=== PATIENT | male | born 1945 | race Caucasian/White ===

== ENCOUNTER 2017-08-18 21:57 | Emergency (ER) | payer OTHER ==
[2017-08-18 22:04] VITALS: BMI 25.1
[2017-08-18] MEDS ORDERED: ASPIRIN PO ONE (22:08)
[2017-08-18] MEDS ORDERED: ASPIRIN ONE (22:10)
[2017-08-18 22:23] LABS: BASOPHILS % (AUTO) 0.6 % (0.2-1.0); EOSINOPHILS # (AUTO) 0.3 x10^3/uL (0.0-0.2); EOSINOPHILS % (AUTO) 4.7 % (0.9-2.9); HEMATOCRIT 41.1 % (42.0-54.0); HEMOGLOBIN 14.3 g/dL (13.5-18.0); LYMPHOCYTES # (AUTO) 2.9 X10^3/uL (1.3-2.9); LYMPHOCYTES % (AUTO) 39.4 % (21.0-51.0); MEAN CORPUSCULAR HEMOGLOBIN 29.4 pg (27.0-34.0); MEAN CORPUSCULAR HGB CONC 34.8 g/dL (33.0-35.0); MEAN CORPUSCULAR VOLUME 84.4 fL (80.0-100.0); MONOCYTES # (AUTO) 0.6 x10^3/uL (0.3-0.8); MONOCYTES % (AUTO) 8.7 % (0.0-13.0); NEUTROPHILS # (AUTO) 3.4 x10^3/uL (2.2-4.8); NEUTROPHILS % (AUTO) 46.6 % (42.0-75.0); PLATELET COUNT 216 X10^3/uL (150.0-450.0); RED BLOOD COUNT 4.87 X10^6/uL (4.7-6.0); RED CELL DISTRIBUTION WIDTH 13.6 % (11.6-16.5); WHITE BLOOD COUNT 7.2 X10^3/uL (3.6-10.0)
[2017-08-18] MEDS ORDERED: NITROSTAT SL PRN (22:29)
--- NOTE | 2017-08-18 22:32 | RAD ---
HISTORY: Chest pain Study: Single view chest Comparison: None Findings: There is a dual-chamber pacemaker noted on the right. No infiltrate, effusion or pneumothorax identif ied. The cardiac and mediastinal contours are within normal limits. The soft tissues are unremarkabl e. IMPRESSION: 1. No acute cardiopulmonary abnormality. Reported By:
--- NOTE | 2017-08-18 22:39 | DR.GENAD ---
HPI - PCP Primary Care Physician: [facility] - HPI Comment HPI Comment: Patient presents with complain of intermittent mid sternal chest pain onset earlier today that is non radiating, there is no diaphoresis.. He has a pacemaker. He had a stent two years ago. He states that he was outside working in the yard today. He also has a pacemaker. - Complaint/Symptoms Chief Complaint:: INTERMITTANT CHEST PAINS MID STERNAL; PPM D/T PAUSES; HYPERTENSION - Source History Provided: Patient - Mode of Arrival Mode of Arrival: Ambulatory - Timing Onset of Chief Complaint: 08/18/17 PMH - PMH Past Medical History: Yes Past Medical History: Hypertension Past Medical History Comment: LISINOPRIL DAILY; HZTZ DAILY Past Surgical History: Yes Past Surgical History Comment: HERNIA SX X 2 - Family History History of Family Medical Conditions: No - Social History Alcohol Use: None Do you use any recreational Drugs:: No Lives With: Spouse Lives Where: Home - infectious screening In the last 2 months have you had wt loss of >10#?: NO Have you had fever, night sweats or hemotysis?: No Have you traveled outside the country in the last 6 months?: No Isolation: Standard ROS - Review of Systems Constitutional: No Symptoms Reported Eyes: No Symptoms Reported ENTM: No Symptoms Reported Respiratoy: No Symptoms Reported Cardiovascular: No Symptoms Reported Gastrointestinal/Abdominal: No Symptoms Reported Genitourinary: No Symptoms Reported Neurological: No Symptoms Reported Musculoskeletal: No Symptoms Reported Integumentary: No Symptoms Reported Hematologic/Lymphatic: No Symptoms Reported Endocrine: No Symptoms Reported Psychiatric: No Symptoms Reported All Other Systems: Reviewed and Negative PE - Vital Signs Vitals: Temperature 98.3 F Pulse Rate [Left] 69 Pulse Rate 60 Respiratory Rate 20 Blood Pressure [Right Arm] 118/68 Blood Pressure 164/79 O2 Sat by Pulse Oximetry 92 - General Limitations: No Limitations General Appearance: Alert, In No Apparent Distress - Head Head Exam: Normal Inspection, Atraumatic - Eyes Eye exam: Normal Appearance, PERRL, EOMI - ENT ENT Exam: Normal Exam External Ear Exam: Normal External Inspection TM/Canal Exam: Bilateral Normal Nose Exam: Normal Nose Exam Mouth Exam: Normal Inspection Throat Exam: Normal Inspection - Neck Neck Exam: Normal Inspection, Full ROM - Chest Chest Inspection: Normal Inspection - Respiratory Respiratory Exam: Normal Lung Sounds Bilat Respiratory Exam: Bilateral Clear to Auscultation - Cardiovascular Cardiovascular Exam: Regular Rate, Normal Rhythm - Abdominal Exam Abdominal Exam: Normal Inspection, Normal Bowel Sounds Abdominal Tenderness: negative: RUQ, RLQ, LUQ, LLQ, Epigastrium, Suprapubic, Diffuse, Mild, Moderate, Severe, Other - Extremities Extremities Exam: Normal Inspection, Full ROM - Back Back Exam: Normal Inspection, Full ROM - Neurologic Neurological Exam: Alert, Oriented X3, CN II-XII Intact - Psychiatric Psychiatric Exam: Normal Affect - Skin Skin Exam: Warm, Dry, Intact Course - Treatment Treatment: NTG, oxygen,ASA - Reevaluation 1st: Improved ROR - Labs Reviewed Laboratory Results Reviewed?: Yes Result Diagrams: 08/18/17 22:15 08/18/17 22:15 Laboratory: WBC 7.2 X10^3/uL (3.6-10.0) 08/18/17 22:15 RBC 4.87 X10^6/uL (4.7-6.0) 08/18/17 22:15 Hgb 14.3 g/dL (13.5-18.0) 08/18/17 22:15 Hct 41.1 % (42.0-54.0) L 08/18/17 22:15 MCV 84.4 fL (80.0-100.0) 08/18/17 22:15 MCH 29.4 pg (27.0-34.0) 08/18/17 22:15 MCHC 34.8 g/dL (33.0-35.0) 08/18/17 22:15 RDW 13.6 % (11.6-16.5) 08/18/17 22:15 Plt Count 216 X10^3/uL (150.0-450.0) 08/18/17 22:15 MPV 7.0 fL (7.4-11.0) L 08/18/17 22:15 Neut % 46.6 % (42.0-75.0) 08/18/17 22:15 Lymph % 39.4 % (21.0-51.0) 08/18/17 22:15 Cole % 8.7 % (0.0-13.0) 08/18/17 22:15 Eos % 4.7 % (0.9-2.9) H 08/18/17 22:15 Baso % 0.6 % (0.2-1.0) 08/18/17 22:15 Neut # 3.4 x10^3/uL (2.2-4.8) 08/18/17 22:15 Lymph # 2.9 X10^3/uL (1.3-2.9) 08/18/17 22:15 Cole # 0.6 x10^3/uL (0.3-0.8) 08/18/17 22:15 Eos # 0.3 x10^3/uL (0.0-0.2) H 08/18/17 22:15 Baso # 0.0 X10^3/uL (0.0-0.1) 08/18/17 22:15 Absolute Nucleated RBC 0.0 /100WBC 08/18/17 22:15 INR Target Range - 08/18/17 22:15 INR 0.98 (0.8-1.3) 08/18/17 22:15 PTT 31.9 SECONDS (22.9-36.5) 08/18/17 22:15 PTT Comment - 08/18/17 22:15 Sodium 140 mmol/L (136-145) 08/18/17 22:15 Corrected Sodium TNP 08/18/17 22:15 Potassium 3.6 mmol/L (3.5-5.1) 08/18/17 22:15 Chloride 101 mmol/L (98-107) 08/18/17 22:15 Carbon Dioxide 29.9 mmol/L (21-32) 08/18/17 22:15 BUN 26 mg/dL (7-18) H 08/18/17 22:15 Creatinine 1.44 mg/dL (0.70-1.30) H 08/18/17 22:15 Est GFR (MDRD) Af Amer > 60 (>60) 08/18/17 22:15 Est GFR (MDRD) Non-Af 52 (>60) L 08/18/17 22:15 Glucose 101 mg/dL (65-99) H 08/18/17 22:15 Calcium 8.7 mg/dL (8.5-10.1) 08/18/17 22:15 Corrected Calcium TNP 08/18/17 22:15 Magnesium 2.0 mg/dL (1.7-2.9) 08/18/17 22:15 Total Bilirubin 0.30 mg/dL (0.2-1.0) 08/18/17 22:15 AST 27 Units/L (15-37) 08/18/17 22:15 ALT 33 Units/L (12-78) 08/18/17 22:15 Alkaline Phosphatase 89 Units/L (46-116) 08/18/17 22:15 Creatine Kinase 195 Units/L (39-308) 08/18/17 22:15 CK-MB (CK-2) 2.4 ng/mL (0-4.0) 08/18/17 22:15 CK/CKMB % Calc 1.2 % (<4) 08/18/17 22:15 Troponin I < 0.02 ng/mL (0-1.5) 08/18/17 22:15 Total Protein 7.4 g/dL (6.4-8.2) 08/18/17 22:15 Albumin 3.6 g/dL (3.4-5.0) 08/18/17 22:15 Globulin 3.8 g/dL (2.5-4.5) 08/18/17 22:15 Albumin/Globulin Ratio 0.9 Ratio (1.1-2.1) L 08/18/17 22:15 - XRAY XRAY Interpreted by: Radiologist (Chest: No acute cardiopulmonary disease) - Diagnosis Discharge Problem: Acute coronary syndrome - Discharge Plan Condition: Stable - Follow ups/Referrals Follow ups/Referrals: NFD,None [Primary Care Provider] - 3 days - Instructions
[2017-08-18 22:43] VITALS: BP 118/68
[2017-08-18 22:44] LABS: BLOOD UREA NITROGEN 26 mg/dL (7-18); CALCIUM 8.7 mg/dL (8.5-10.1); CARBON DIOXIDE 29.9 mmol/L (21-32); CHLORIDE 101 mmol/L (98-107); CREATININE 1.44 mg/dL (0.70-1.30); SODIUM 140 mmol/L (136-145); TROPONIN I < 0.02 ng/mL (0-1.5); eGFR BLACK RACES > 60 (>60); eGFR NON BLACK RACES 52 (>60)
[2017-08-18 22:48] LABS: ALANINE AMINOTRANSFERASE 33 Units/L (12-78); ALBUMIN 3.6 g/dL (3.4-5.0); ALKALINE PHOSPHATASE 89 Units/L (46-116); ASPARTATE AMINO TRANSFERASE 27 Units/L (15-37); CKMB % 1.2 % (<4); CREATINE KINASE 195 Units/L (39-308); CREATINE KINASE MB 2.4 ng/mL (0-4.0); TOTAL PROTEIN 7.4 g/dL (6.4-8.2)
== END 2017-08-18 23:48 | disposition home or self-care (01) ==
LOC: ER 22:06
DX: I24.9 Acute ischemic heart disease, unspecified (principal)
CPT/HCPCS: 36415; 71045; 80053; 82550; 82553; 83735; 84484; 85025; 85610; 85730; 93005; 93010; 96365; 99283; A4222

== ENCOUNTER 2021-02-19 11:03 | Observation (INO) ==
[2021-02-19 11:34] VITALS: BMI 24.1
[2021-02-19] MEDS ORDERED: ASPIRIN 81 MG CHEWTAB PO STA (11:45)
--- NOTE | 2021-02-19 11:45 | DR.CP ---
HPI Time Seen Time Seen by Provider: 02/19/21 11:42 HPI Comment HPI Comment: PATIENT WITH A HISTORY OF HYPERTENSION, PACEMAKER INSERTION COMPLAINS OF SUBSTERNAL CHEST PAIN X 24 HOURS. DENIES RADIATION OF PAIN TO NECK, JAW OR ARMS, DYSPNEA OR DIAPHORESIS. Complaint Chief Complaint Doctor Comments: CHEST PAIN X LAST NIGHT Chief Complaint:: Pt c/o elevated blood pressure, headache, and sharp intermittent chest pain that all started last night. Pt's JARAMILLO pain is frontal. Chest pain is midsternal, "just near my pacemaker". COVID-19 Coronavirus risk:travel/contact w/high risk person: No Has patient experienced Coronavirus symptoms: No Reviewed Nurses Notes Review: Yes Source History Provided: Patient Mode of Arrival Mode of Arrival: Ambulatory Timing Onset of Chief Complaint: 02/19/21 Location Chest Pain Radiation Location: None Associated Signs and Symptoms Associated Signs and Symptoms: Other PMH PMH Past Medical History: Yes Past Medical History: Dyslipidemia and Hypertension Past Surgical History: Yes Past Surgical History Comment: hernia repair, pacemaker Family History History of Family Medical Conditions: Yes Family Medical History: Hypertension Social History Alcohol Use: Occasionally Do you use any recreational Drugs:: No Lives With: Spouse Lives Where: Home Travel Risk Coronavirus risk:travel/contact w/high risk person: No Has patient experienced Coronavirus symptoms: No Infectious screening Have you traveled outside the country in the last 6 months?: No Isolation: Standard ROS Review of Systems Constitutional: No Symptoms Reported Eyes: No Symptoms Reported ENTM: No Symptoms Reported Respiratoy: Short of Breath Cardiovascular: See HPI and Chest Pain Gastrointestinal/Abdominal: No Symptoms Reported Genitourinary: No Symptoms Reported Neurological: No Symptoms Reported Musculoskeletal: No Symptoms Reported Integumentary: No Symptoms Reported Hematologic/Lymphatic: No Symptoms Reported Endocrine: No Symptoms Reported Psychiatric: No Symptoms Reported All Other Systems: Reviewed and Negative PE Vitals Vitals: Temperature 97.8 F Pulse Rate 81 Respiratory Rate 32 Blood Pressure [Right Arm] 165/88 Blood Pressure 144/68 O2 Sat by Pulse Oximetry 96 General Limitations: No Limitations General Appearance: Alert and In No Apparent Distress Head Head Exam: Normal Inspection, Atraumatic and Normocephalic; negative Other Eyes Eye exam: Normal Appearance and PERRL ENT ENT Exam: Normal Exam and Normal Oropharynx Chest Chest Inspection: Normal Inspection Respiratory Respiratory Exam: Normal Lung Sounds Bilat Respiratory Exam: Bilateral: Clear to Auscultation Cardiovascular Cardiovascular Exam: Regular Rate and Normal Rhythm Pulse: Normal Edema: Normal Abdominal Exam Abdominal Exam: Normal Inspection and Normal Bowel Sounds Extremities Extremities Exam: Normal Inspection and Full ROM Back Back Exam: Normal Inspection Neurologic Neurological Exam: Alert and Oriented X3 Psychiatric Psychiatric Exam: Normal Affect and Normal Mood Skin Skin Exam: Warm, Dry and Mottled MDM Differential Diagnosis Differential Diagnosis: Angina, CHF and Myocardial Infarction COURSE Treatment Treatment: IV NORMAL SALINE 100ML/HR, ASPIRIN 3 BABY, NTG 0.4MG SL X 2, NITROPASTE 1 INCH ANTERIOR CHEST WALL, Reevaluation 1st: Improved Consultation Call Returned: 14:30 Consultation Comments: DISCUSSED WITH DR PINK FOR OBSERVATION ROR Labs Reviewed Laboratory Results Reviewed?: Yes Result Diagrams: 02/19/21 11:40 02/19/21 11:40 Laboratory: WBC 6.1 X10^3/uL (3.6-10.0) 02/19/21 11:40 RBC 4.47 X10^6/uL (4.7-6.0) L 02/19/21 11:40 Hgb 13.6 g/dL (13.5-18.0) 02/19/21 11:40 Hct 39.9 % (42.0-54.0) L 02/19/21 11:40 MCV 89.2 fL (80.0-100.0) 02/19/21 11:40 MCH 30.4 pg (27.0-34.0) 02/19/21 11:40 MCHC 34.0 g/dL (33.0-35.0) 02/19/21 11:40 RDW 13.2 % (11.6-16.5) 02/19/21 11:40 Plt Count 193 X10^3/uL (150.0-450.0) 02/19/21 11:40 MPV 7.3 fL (7.4-11.0) L 02/19/21 11:40 Neut % (Auto) 55.4 % (42.0-75.0) 02/19/21 11:40 Lymph % (Auto) 30.2 % (21.0-51.0) 02/19/21 11:40 [place] % (Auto) 10.1 % (0.0-13.0) 02/19/21 11:40 Eos % (Auto) 3.7 % (0.9-2.9) H 02/19/21 11:40 Baso % (Auto) 0.6 % (0.2-1.0) 02/19/21 11:40 Neut # (Auto) 3.4 x10^3/uL (2.2-4.8) 02/19/21 11:40 Lymph # (Auto) 1.8 X10^3/uL (1.3-2.9) 02/19/21 11:40 [place] # (Auto) 0.6 x10^3/uL (0.3-0.8) 02/19/21 11:40 Eos # (Auto) 0.2 x10^3/uL (0.0-0.2) 02/19/21 11:40 Baso # (Auto) 0.0 X10^3/uL (0.0-0.1) 02/19/21 11:40 Absolute Nucleated RBC 0.0 /100WBC 02/19/21 11:40 PT 13.3 SECONDS (11.8-14.3) 02/19/21 11:40 INR Target Range - 02/19/21 11:40 INR 1.06 (0.8-1.3) 02/19/21 11:40 Sodium 141 mmol/L (136-145) 02/19/21 11:40 Corrected Sodium TNP 02/19/21 11:40 Potassium 3.7 mmol/L (3.5-5.1) 02/19/21 11:40 Chloride 103 mmol/L (98-107) 02/19/21 11:40 Carbon Dioxide 31.3 mmol/L (21-32) 02/19/21 11:40 BUN 18 mg/dL (7-18) 02/19/21 11:40 Creatinine 1.14 mg/dL (0.70-1.30) 02/19/21 11:40 Est GFR (MDRD) Af Amer > 60 (>60) 02/19/21 11:40 Est GFR (MDRD) Non-Af > 60 (>60) 02/19/21 11:40 Glucose 93 mg/dL (65-99) 02/19/21 11:40 Calcium 8.9 mg/dL (8.5-10.1) 02/19/21 11:40 Corrected Calcium TNP 02/19/21 11:40 Magnesium 2.0 mg/dL (1.7-2.9) 02/19/21 11:40 Total Bilirubin 0.60 mg/dL (0.2-1.0) 02/19/21 11:40 AST 29 Units/L (15-37) 02/19/21 11:40 ALT 25 Units/L (12-78) 02/19/21 11:40 Alkaline Phosphatase 86 Units/L (46-116) 02/19/21 11:40 Troponin I < 0.02 ng/mL (0-1.5) 02/19/21 11:40 Total Protein 7.1 g/dL (6.4-8.2) 02/19/21 11:40 Albumin 3.6 g/dL (3.4-5.0) 02/19/21 11:40 Globulin 3.5 g/dL (2.5-4.5) 02/19/21 11:40 Albumin/Globulin Ratio 1.0 Ratio (1.1-2.1) L 02/19/21 11:40 SARS-CoV-2 (PCR) Negative (NEGATIVE) 02/19/21 14:00 Influenza Type A (PCR) Negative (NEGATIVE) 02/19/21 14:00 Influenza Type B (PCR) Negative (NEGATIVE) 02/19/21 14:00 RSV (PCR) Negative (NEGATIVE) 02/19/21 14:00 XRAY X-ray Results: CHEST - NO EVIDENCE INFILTRATE OR CONGESTIVE HEART FAILURE, RIGHT HEMITHORAX PACEMAKER EKG Rate: 61 Rhythm: NSR Block: 1 Opioid Opioid Risk Tool Age (Magdaleno box if 16-45): No Total: 0 Total Score Risk Category: Low Risk Copyright: [facility] predicting aberrant behaviors Diagnosis Discharge Problem: Acute chest pain
[2021-02-19] MEDS ORDERED: NITROSTAT SL PRN ×3 (11:50→16:14)
[2021-02-19] MEDS ORDERED: ASPIRIN 81 MG CHEWTAB ONE (11:58)
[2021-02-19 12:03] LABS: BASOPHILS % (AUTO) 0.6 % (0.2-1.0); EOSINOPHILS # (AUTO) 0.2 x10^3/uL (0.0-0.2); EOSINOPHILS % (AUTO) 3.7 % (0.9-2.9); HEMATOCRIT 39.9 % (42.0-54.0); HEMOGLOBIN 13.6 g/dL (13.5-18.0); LYMPHOCYTES # (AUTO) 1.8 X10^3/uL (1.3-2.9); LYMPHOCYTES % (AUTO) 30.2 % (21.0-51.0); MEAN CORPUSCULAR HEMOGLOBIN 30.4 pg (27.0-34.0); MEAN CORPUSCULAR VOLUME 89.2 fL (80.0-100.0); MEAN PLATELET VOLUME 7.3 fL (7.4-11.0); MONOCYTES # (AUTO) 0.6 x10^3/uL (0.3-0.8); MONOCYTES % (AUTO) 10.1 % (0.0-13.0); NEUTROPHILS # (AUTO) 3.4 x10^3/uL (2.2-4.8); NEUTROPHILS % (AUTO) 55.4 % (42.0-75.0); PLATELET COUNT 193 X10^3/uL (150.0-450.0); RED BLOOD COUNT 4.47 X10^6/uL (4.7-6.0); RED CELL DISTRIBUTION WIDTH 13.2 % (11.6-16.5); WHITE BLOOD COUNT 6.1 X10^3/uL (3.6-10.0)
[2021-02-19 12:27] LABS: ALANINE AMINOTRANSFERASE 25 Units/L (12-78); ALBUMIN 3.6 g/dL (3.4-5.0); ALKALINE PHOSPHATASE 86 Units/L (46-116); ASPARTATE AMINO TRANSFERASE 29 Units/L (15-37); BLOOD UREA NITROGEN 18 mg/dL (7-18); CALCIUM 8.9 mg/dL (8.5-10.1); CARBON DIOXIDE 31.3 mmol/L (21-32); CHLORIDE 103 mmol/L (98-107); CREATININE 1.14 mg/dL (0.70-1.30); SODIUM 141 mmol/L (136-145); TOTAL PROTEIN 7.1 g/dL (6.4-8.2); TROPONIN I < 0.02 ng/mL (0-1.5); eGFR NON BLACK RACES > 60 (>60)
--- NOTE | 2021-02-19 12:40 | RAD ---
HISTORYCHEST PAINSTUDYCHEST, 1 VIEWCOMPARISONNoneFINDINGSThe trachea is midline. The cardiac silhouette is unremarkable. Pacemaker is in place battery over the right upper lateral thorax. One lead lies in the right atrium 1 in the inferior right ventricle. The lungs are clear without focal infiltrate or effusion. The bony thorax is unremarkable other than superior displacement of the left humeral head in the glenoid fossa consistent with chronic rotator cuff tear..IMPRESSIONNo acute cardiopulmonary disease.. Pacemaker is in place.Electronically signed by: YESSI COLE (Feb 19, 2021 12:39:11)
[2021-02-19] MEDS ORDERED: MORPHINE SULFATE INJ 2 MG INJ IVP ONE (13:22)
[2021-02-19] MEDS ORDERED: ZOFRAN INJ 4 MG VIAL IVP ONE (13:22)
[2021-02-19] MEDS ORDERED: NITRO-BID OINT 2% UD (E.R. USE ONLY) TD ONE (13:22)
[2021-02-19] MEDS ORDERED: APRESOLINE INJ 20 MG VIAL IVP STA (14:02)
[2021-02-19] MEDS ORDERED: NITRO-BID OINT 2% UD (E.R. USE ONLY) ONE (14:17)
[2021-02-19] MEDS ORDERED: MORPHINE SULFATE INJ 2 MG INJ ONE (14:17)
[2021-02-19] MEDS ORDERED: ZOFRAN INJ 4 MG VIAL ONE (14:17)
[2021-02-19] MEDS ORDERED: APRESOLINE INJ 20 MG VIAL ONE (14:17)
[2021-02-19] MEDS ORDERED: PATIENT'S HOME MEDICATION (Aspirin 81 mg Tablet) PO SCH (16:15)
[2021-02-19] MEDS ORDERED: CRESTOR TAB 10 MG PO ONE (16:38)
[2021-02-19] MEDS ORDERED: NS 1000 ML 1,000 ML ONE (16:39)
[2021-02-19] MEDS ORDERED: ZESTRIL TAB 40 MG ONE (16:39)
[2021-02-19] MEDS: ZESTRIL TAB 40 MG PO SCH ×2 (16:41→17:05)
[2021-02-19] MEDS ORDERED: NS 1000 ML 1,000 ML IV SCH (17:00)
[2021-02-19] MEDS ORDERED: CRESTOR TAB 10 MG PO SCH (17:00)
[2021-02-19] MEDS ORDERED: RESTORIL CAP 15 MG PO PRN (19:53)
[2021-02-19] MEDS ORDERED: HYTRIN PO SCH (21:00)
[2021-02-19] MEDS ORDERED: LOPRESSOR TAB 25 MG ONE (21:03)
[2021-02-19] MEDS ORDERED: HYTRIN PO ONE (21:03)
[2021-02-19] MEDS ORDERED: ARTIFICIAL TEARS DROPS ONE (21:03)
[2021-02-19] MEDS ORDERED: RESTORIL CAP 15 MG PO ONE (21:05)
[2021-02-19] MEDS: LOPRESSOR TAB 25 MG PO SCH (21:25)
[2021-02-19] MEDS: NITRO-BID OINT 2% Multi-Dose tube TD SCH (21:26)
[2021-02-19] MEDS: LACRI-LUBE S.O.P. OP SCH (21:27)
[2021-02-20] MEDS ORDERED: NITRO-BID OINT 2% UD (E.R. USE ONLY) ONE (03:32)
[2021-02-20] MEDS: NITRO-BID OINT 2% Multi-Dose tube TD SCH ×2 (03:35→09:43)
[2021-02-20 08:22] LABS: BASOPHILS % (AUTO) 0.4 % (0.2-1.0); EOSINOPHILS # (AUTO) 0.1 x10^3/uL (0.0-0.2); EOSINOPHILS % (AUTO) 0.5 % (0.9-2.9); HEMATOCRIT 38.7 % (42.0-54.0); HEMOGLOBIN 13.2 g/dL (13.5-18.0); LYMPHOCYTES # (AUTO) 1.3 X10^3/uL (1.3-2.9); LYMPHOCYTES % (AUTO) 11.4 % (21.0-51.0); MEAN CORPUSCULAR HEMOGLOBIN 30.4 pg (27.0-34.0); MEAN CORPUSCULAR HGB CONC 34.1 g/dL (33.0-35.0); MEAN CORPUSCULAR VOLUME 89.1 fL (80.0-100.0); MEAN PLATELET VOLUME 7.4 fL (7.4-11.0); MONOCYTES # (AUTO) 0.9 x10^3/uL (0.3-0.8); MONOCYTES % (AUTO) 8.6 % (0.0-13.0); NEUTROPHILS # (AUTO) 8.7 x10^3/uL (2.2-4.8); NEUTROPHILS % (AUTO) 79.1 % (42.0-75.0); PLATELET COUNT 178 X10^3/uL (150.0-450.0); RED BLOOD COUNT 4.34 X10^6/uL (4.7-6.0); RED CELL DISTRIBUTION WIDTH 13.1 % (11.6-16.5)
[2021-02-20] MEDS ORDERED: PROTONIX INJ 40 MG VIAL IVP SCH (09:00)
[2021-02-20] MEDS ORDERED: ASPIRIN 81 MG CHEWTAB PO SCH (09:00)
[2021-02-20] MEDS ORDERED: HYDROCHLOROTHIAZIDE 25 MG TAB PO SCH (09:00)
[2021-02-20] MEDS ORDERED: ZESTRIL TAB 40 MG PO SCH (09:00)
[2021-02-20] MEDS ORDERED: CRESTOR TAB 10 MG PO SCH (09:00)
[2021-02-20 09:02] LABS: ALANINE AMINOTRANSFERASE 24 Units/L (12-78); ALBUMIN 3.4 g/dL (3.4-5.0); ALKALINE PHOSPHATASE 79 Units/L (46-116); ASPARTATE AMINO TRANSFERASE 21 Units/L (15-37); BLOOD UREA NITROGEN 21 mg/dL (7-18); CALCIUM 8.7 mg/dL (8.5-10.1); CARBON DIOXIDE 31.5 mmol/L (21-32); CHLORIDE 106 mmol/L (98-107); CREATINE KINASE 116 Units/L (39-308); CREATINE KINASE MB 1.1 ng/mL (0-4.0); CREATININE 1.49 mg/dL (0.70-1.30); SODIUM 143 mmol/L (136-145); TOTAL PROTEIN 6.7 g/dL (6.4-8.2); TROPONIN I < 0.02 ng/mL (0-1.5); eGFR NON BLACK RACES 49 (>60)
[2021-02-20] MEDS: LOPRESSOR TAB 25 MG PO SCH (09:47)
[2021-02-20] MEDS: LACRI-LUBE S.O.P. OP SCH (09:47)
[2021-02-20 11:48] VITALS: BP 121/65
[2021-02-20 12:08] LABS: CKMB % 1.1 % (<4); CREATINE KINASE 108 Units/L (39-308); CREATINE KINASE MB 1.2 ng/mL (0-4.0); TROPONIN I < 0.02 ng/mL (0-1.5)
== END 2021-02-20 14:20 | disposition home or self-care (01) ==
LOC: ER 11:16 → MED/SURG 11:16 → ER 16:02
PROVIDERS: ADMIT Internal Medicine; ATTEND Internal Medicine
DX: R94.31 Abnormal electrocardiogram [ECG] [EKG]; Z20.822 Contact with and (suspected) exposure to COVID-19; E78.2 Mixed hyperlipidemia; R51.9 Headache, unspecified; R07.89 Other chest pain; I10 Essential (primary) hypertension; Z95.0 Presence of cardiac pacemaker; I25.10 Atherosclerotic heart disease of native coronary artery without angina pectoris